=== PATIENT | female | born 1990 | race Caucasian/White ===

== ENCOUNTER 2021-08-11 00:10 | Inpatient (IN) | payer BC, MEDICAID, SELFPAY ==
[2021-08-10 23:21] VITALS: BMI 26.6
[2021-08-10 23:37] VITALS: BP 124/77; PULSE 103
[2021-08-10 23:38] VITALS: TEMP 36.3
[2021-08-10 23:47] VITALS: RESP 16
[2021-08-11] VITALS (145 sets, daily range): BP systolic 101–157; BP diastolic 50–88; PULSE 91–139; RESP 14–16; TEMP 36.6–37.3; O2SAT 80–100
[2021-08-11] MEDS: fentaNYL 50 mcg/mL INJ 2mL IVP (01:06)
[2021-08-11] MEDS: lactated ringers 1,000 ML 999 ML IV (01:10)
[2021-08-11] MEDS: ondansetron 2 mg/ML SDV 2 mL 4 MG IVP ×2 (01:15→07:55)
[2021-08-11 02:00] LABS: Basophils # 0.1 10^3/uL (0.0-0.1); Basophils % 0.3 %; Eosinophils % 0.1 %; Hematocrit 43.3 % (37.0-47.0); Hemoglobin 14.3 g/dL (11.5-15.3); Lymphocytes # 1.7 10^3/uL (0.8-4.8); Mean Corpuscular Hemoglobin 29.4 pg (28.0-34.0); Mean Corpuscular Volume 89.1 fl (81-99); Mean Platelet Volume 12.4 fL (7.4-10.4); Monocytes # 0.7 10^3/uL (0.2-0.9); Monocytes % 3.2 %; Neutrophils # 18.93 10^3/uL (1.8-7.7); Neutrophils % 87.6 %; Nucleated Red Blood Cells % 0 %; Platelet Count 205 10^3/cmm (130-400); Red Blood Count 4.86 10^6/uL (4.1-5.3); Red Cell Distribution Width 13.2 % (12.1-15.1); White Blood Count 21.6 10^3/uL (4.0-10.0)
[2021-08-11 02:17] LABS: Amphetamines Screen Urine Negative (Negative); Barbiturates Screen Urine Negative (Negative); Benzodiazepines Screen Urine Negative (Negative); Cocaine Screen Urine Negative (Negative); Opiate Screen Urine Negative (Negative); PCP Screen Urine Negative (Negative); THC Screen Urine Negative (Negative)
[2021-08-11] MEDS: dextrose 5%-lactated ringers 1,000 ML 125 ML IV (02:38)
--- NOTE | 2021-08-11 03:04 | ANES.PREANE2 ---
Pre-Anesthetic Assessment Pre-Anesthetic Assessment: Height/Weight: Height 1.7 m Weight 77.111 kg Temp Pulse Resp BP Pulse Ox 97.9 F 122 H 16 121/72 98 08/11/21 02:33 08/11/21 03:03 08/11/21 02:33 08/11/21 03:03 08/11/21 03:01 Preop Diagnosis: active labor Proposed Procedure: labor epidural Familial anesthetic complications: none Was Beta Joni taken within 24 hours: N/A Was Clonidine taken within 24 hours: N/A Last intake: 08/10/21 1500 Social: Social History: No alcohol and No tobacco Exam: Pre-Anes Outpt Exam: alert and oriented x 3 Airway: Submandibular: WNL Cervical ROM: WNL MP: 1 Dentition: Full History/ROS: No significant history except as noted Pulmonary: Pulmonary: Asthma CV/HEM: CV/HEM: None reported : : None reported Hepatic: Hepatic: None reported GI: GI: None reported Metabolic: Metabolic: None reported Musc/skel: Musc/skel: None reported Neuropsych: Neuropsych: None reported Anesthetic Plan: ASA status: 2 Anesthesia: Anesthesia Evaluation and Regional (specify below) Risk of > 500 ml blood loss (7ml/kg in children): No Meds/Allergies Current Medications: Current Medications Generic Name Dose Route Start Last Admin Trade Name Freq PRN Reason Stop Dose Admin Fentanyl 25 - 100 mcg 08/10/21 23:57 08/11/21 01:06 Fentanyl 50 Mcg/ Ml Inj 2ml IVP 25 mcg Q1H PRN Administration SEVERE PAIN Dextrose/Lactated Ringer's 1,000 mls @ 125 m ls/hr 08/10/21 23:57 08/11/21 02:38 Dextrose 5%-Lact ated Ringers IV 125 mls/hr .Q8H PRN Administration labor Lactated Ringer's 1,000 mls @ 999 m ls/hr 08/10/21 23:57 08/11/21 01:10 Lactated Ringers IV 999 mls/hr .Q1H1M PRN Administration See label comment s Ondansetron HCl 4 mg 08/10/21 23:57 08/11/21 01:15 Ondansetron 2 Mg /Ml Sdv 2 Ml IVP 4 mg Q4H PRN Administration NAUSEA AND VOMITI NG PFSH Anesthesia Female Reproductive History: : 2 Data Anesthesia CBC & Chem 7: 08/11/21 01:00 Other Labs: Laboratory Results - last 48 hr 08/11/21 08/11/21 01:00 01:30 WBC 21.6 H RBC 4.86 Hgb 14.3 Hct 43.3 MCV 89.1 MCH 29.4 MCHC 33.0 RDW 13.2 Plt Count 205 MPV 12.4 H Neut % (Auto) 87.6 Lymph % (Auto) 8.0 [place] % (Auto) 3.2 Eos % (Auto) 0.1 Baso % (Auto) 0.3 Neut # (Auto) 18.93 H Lymph # (Auto) 1.7 [place] # (Auto) 0.7 Eos # (Auto) 0.0 Baso # (Auto) 0.1 Nucleated RBC % (auto) 0 Nucleated RBCs # 0.0 Urine Opiates Screen Negative Ur Barbiturates Screen Negative Ur Phencyclidine Scrn Negative Ur Amphetamines Screen Negative U Benzodiazepines Scrn Negative Urine Cocaine Screen Negative U Marijuana (THC) Screen Negative Cardiac Studies: No Data to Display
--- NOTE | 2021-08-11 03:17 | ANES.PROC ---
Anesthesia Procedures Procedure/Date: 08/11/21 NATAN at 7 cm catheter threaded to 14 cm Epidural: Time Out Performed: Yes Consents Signed: Procedure Consent Consent: requested by attending/covering physician, risks and benefits reviewed and patient agrees to proceed Lumbar Level: L3-L4 Epidural position: sitting Epidural procedure: sterile prep of area, 1% lidocaine to numb the area, negative for paresthesia passed, neg for paresthesia, test dose given, placed PCEA, no systemic response, sterile dressing applied and 0.2% Ropiavacaine @ mls/hr
[2021-08-11] MEDS: sodium chloride 0.9% 1,000 ML 999 ML IV (04:27)
--- NOTE | 2021-08-11 09:19 | PM.MISC ---
Miscellaneous Note Purpose of Documentation: Bolused 100mcg of fent and 5mls of 0.25% bup in epidural.
[2021-08-11] MEDS: oxytocin 30 UNIT/500 ML BAG 600 UNIT IV (09:26)
--- NOTE | 2021-08-11 09:30 | PC.NURSE ---
Epidural pump turned off at this time. 4.5 mL of ropivicaine wasted.
--- NOTE | 2021-08-11 09:40 | P.PCNOB_ITS ---
Delivery Note: Date of delivery: August 11, 2021 Pre-delivery diagnoses: 31-year-old 2 para 1-0-0-1 at 40 weeks estimated gestational age presenting in active labor Post-delivery diagnoses: Status post spontaneous vaginal delivery Procedure: Spontaneous vaginal delivery Op report anesthesia: Epidural Delivering Physician: Alistair Cifuentes Estimated blood loss (mL): 150 Pre-Delivery Course: The patient arrived to the hospital the night prior to delivery with consistent contractions and cervical change. She was given an epidural. An amniotomy was performed. She was noted to have a rapid heart rate. She had no fever. She had no pain or foul-smelling amniotic fluid. She progressed to complete without difficulty. Delivery: DELIVERY: The patient progressed to complete without difficulty. She delivered a male with a weight of 7 pounds 9 ounces with Apgars of 9, 9. The baby was delivered from the JANET position and placed on the mother's abdomen. The cord was then clamped and cut. There was a nuchal cord x1. There was no meconium. The placenta and 3 vessel cord were delivered intact shortly thereafter. The perineum and vaginal vault were carefully examined. A superficial first-degree left vaginal wall laceration was noted that did not require repair. Both the mother and the baby were in stable condition. Post-Delivery Status: Good History History Other History: Her was relatively unremarkable. Her blood type was a positive. Her antibody screen was negative. Her HIV, chlamydia, gonorrhea, and RPR, and hepatitis B and C were all negative. Her glucose screen was negative. Her rubella is immune. Her Covid status is negative. Her GBS status is negative. She was positive for THC on her initial drug screen. A&P Assessment and plan (1) 40 weeks gestation of : Status: Acute (2) Spontaneous vaginal delivery: Status: Acute Coding Level of Care Code Acute General Pediatrician for Chg Fwd Diagnoses 40 weeks gestation of Z3A.40 Spontaneous vaginal delivery O80
--- NOTE | 2021-08-11 09:48 | PM.OPHPUD ---
Labor & Delivery H&P Update Date of Procedure: August 11, 2021 Date H&P Performed: 08/10/21 H&P update information: I have reviewed H&P completed within last 30 days, I have examined patient prior to procedure and Changes to prior documentation as noted here Changes to previous documentation: Cervix is dilated to 7 cm. Admission Diagnosis: Preop diagnosis: active labor Planned procedure: Spontaneous vaginal delivery Related Problem List Diagnoses (1) 40 weeks gestation of :
--- NOTE | 2021-08-11 10:25 | PC.NURSE ---
Epidural catheter removed at this time without difficulties. Catheter intact and site asymptomatic.
--- NOTE | 2021-08-11 12:15 | PC.NURSE ---
Pt requested to get out of bed at this time. This nurse at bedside assisting pt. Pt stood and her left leg became very weak. This nurse had pt sit back down in bed and got a wheelchair. Transferred pt to wheelchair and took her into the bathroom, transferred her to the commode. Pt was not able to void, olvin care was performed and pt transferred back to wheelchair and was taken to her room. Pt orientated to room and was instructed to not get out of bed and to call if she was ready to get out of bed and use the bathroom. Pt verbalized understanding.
[2021-08-11] MEDS: benzocaine-menthol 78 gm Canister 1 SPRAY TOPICAL (12:28)
[2021-08-11] MEDS: lanolin oint 7 gm 1 APPLIC TOPICAL (12:28)
[2021-08-11] MEDS: ibuprofen 800 mg tablet PO ×2 (15:31→21:15)
--- NOTE | 2021-08-11 15:41 | ANE.PACU2 ---
Inpatient post-anesthesia follow up: Airway intact: Yes Vital signs: Temperature 98.3 F Pulse Rate 91 Respiratory Rate 16 Blood Pressure 122/88 Pulse Oximetry 89 Oxygen Delivery Me thod Room Air Oxygen Flow Rate Fraction of Inspir ed Oxygen Hydration adequate: Yes Nausea and vomiting: No Pain level: 2 Mental status: Baseline
[2021-08-11 21:33] LABS: Hematocrit 37.4 % (37.0-47.0); Hemoglobin 12.2 g/dL (11.5-15.3); Mean Corpuscular HGB Conc 32.6 g/dL (30.0-36.0); Mean Corpuscular Hemoglobin 29.5 pg (28.0-34.0); Mean Corpuscular Volume 90.6 fl (81-99); Mean Platelet Volume 11.8 fL (7.4-10.4); Platelet Count 197 10^3/cmm (130-400); Red Blood Count 4.13 10^6/uL (4.1-5.3); Red Cell Distribution Width 13.7 % (12.1-15.1)
[2021-08-12 00:30] VITALS: BP 98/59; PULSE 93; RESP 16; O2SAT 96
[2021-08-12 04:30] VITALS: BP 100/59; PULSE 89; RESP 16; TEMP 37.1; O2SAT 97
[2021-08-12] MEDS: docusate sodium 100 mg Capsule PO (08:50)
[2021-08-12] MEDS: ibuprofen 800 mg tablet PO (08:51)
[2021-08-12] MEDS: prenatal vitamin Capsule 1 CAP PO (08:51)
--- NOTE | 2021-08-12 10:16 | P.DS_ITS ---
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 An epidural was placed. An amniotomy was performed. She progressed to complete and had an unremarkable delivery of a healthy-appearing 40-week male . Her course was also unremarkable. Her bleeding was within normal limits. She breast-fed well. Her pain was under control. Information Peripartum Data: Delivery Method: Vaginal Physical Exam Narrative: EXAM NARRATIVE: The patient is alert. She appears comfortable. Her heart has a regular rate and rhythm with no murmurs appreciated. Lungs are clear to auscultation bilaterally. Her fundus is firm and below the umbilicus. Urinary Catheter Management^: John Latex: Cath Placed During This Visit: yes, but has since been removed by the nurse Reason for Continuing Indwelling Catheter: Decision to DC Catheter Urinary Catheter Date of Insertion: 08/11/21 Urinary Catheter Time of Insertion: 03:44 Date Urinary Catheter Removed: 08/11/21 Time Urinary Catheter Discontinued: 07:26 History History Other History: Her was relatively unremarkable. Her blood type was a positive. Her antibody screen was negative. Her HIV, chlamydia, gonorrhea, and RPR, and hepatitis B and C were all negative. Her glucose screen was negative. Her rubella is immune. Her Covid status is negative. Her GBS status is negative. She was positive for THC on her initial drug screen. Discharge Data Data Completed and Pending: Labs from last 24 hours 08/11/21 21:20 WBC 26.0 H RBC 4.13 Hgb 12.2 Hct 37.4 MCV 90.6 MCH 29.5 MCHC 32.6 RDW 13.7 Plt Count 197 MPV 11.8 H Vitals: Last Vital Signs Temp 98.7 F 08/12/21 04:30 Pulse 89 08/12/21 04:30 Resp 16 08/12/21 04:30 BP 100/59 08/12/21 04:30 Pulse Ox 97 08/12/21 04:30 Discharge Plan Discharge Patient Disposition: Home Condition: Stable Prescriptions: New ibuprofen 800 mg Tablet 800 mg PO TID Qty: 45 RF: 0 -U 106.5-1 mg Capsule 1 cap PO DAILY Qty: 90 RF: 2 Discharge Orders: Discharge Order (Routine); Ordered 08/12/21 Ordered By: Alistair Cifuentes Referrals: Alistair Cifuentes MD [Physician] - 6 Weeks Discharge Diet: Usual diet Discharge Activity: Limit activity as instructed 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
[2021-08-12 12:00] VITALS: BP 119/80; PULSE 77; RESP 16; TEMP 36.8; O2SAT 100
[2021-08-12 15:02] VITALS: BP 119/80; PULSE 77; RESP 16; TEMP 36.8; O2SAT 100
[2021-08-12 15:03] VITALS: BP 119/80; PULSE 77; RESP 16; TEMP 36.8; O2SAT 100
== END 2021-08-12 14:40 | disposition home or self-care (01) | DRG 807 ==
PROVIDERS: Admitting Provider Family Medicine; Visit Provider Family Medicine
DX: O99.52 Diseases of the respiratory system complicating childbirth (principal); Z37.0 Single live birth; O69.81X0 Labor and delivery complicated by cord around neck, without compression, not applicable or unspecified; J45.909 Unspecified asthma, uncomplicated; Z3A.40 40 weeks gestation of pregnancy
CPT/HCPCS: 12345; 36415; 51702; 59025; 59409; 80306; 85025; 85027; 99211; J2405; J2795; J3010; J3490; J7030

== ENCOUNTER → 2021-11-29 13:41 | Outpatient (BNVA) | payer BC, MEDICAID, SELFPAY | PROVIDERS: Referring Provider Family Medicine; Visit Provider Internal Medicine | DX: E05.90 Thyrotoxicosis, unspecified without thyrotoxic crisis or storm (principal); Z87.891 Personal history of nicotine dependence | CPT/HCPCS: 99204 ==

== ENCOUNTER → 2022-01-10 13:44 | Outpatient (BNVA) | payer BC, MEDICAID, SELFPAY | PROVIDERS: Visit Provider Internal Medicine | DX: E05.90 Thyrotoxicosis, unspecified without thyrotoxic crisis or storm (principal); Z87.891 Personal history of nicotine dependence | CPT/HCPCS: 99213; 99214 ==

== ENCOUNTER → 2022-03-13 13:31 | Outpatient (BNVA) | payer BC, MEDICAID, SELFPAY | PROVIDERS: PCP Family Medicine; Visit Provider Internal Medicine | DX: O90.5 Postpartum thyroiditis (principal); R79.89 Other specified abnormal findings of blood chemistry; Z87.891 Personal history of nicotine dependence | CPT/HCPCS: 99214 ==

== ENCOUNTER → 2022-05-14 13:33 | Outpatient (BNVA) | payer BC, MEDICAID, SELFPAY | PROVIDERS: PCP Family Medicine; Visit Provider Internal Medicine | DX: Z87.891 Personal history of nicotine dependence (principal); E05.90 Thyrotoxicosis, unspecified without thyrotoxic crisis or storm; O90.5 Postpartum thyroiditis; R79.89 Other specified abnormal findings of blood chemistry | CPT/HCPCS: 99214 ==

== ENCOUNTER 2022-05-28 14:07 | Outpatient (CLI) | payer BC, MEDICAID, SELFPAY ==
--- NOTE | 2022-05-28 14:15 | US_ITS ---
WS: [id number] ULTRASOUND THYROID TECHNIQUE: Ultrasound of the thyroid. CLINICAL INFORMATION: hyperthyroidism Do with Doppler COMPARISON: None. FINDINGS: Thyroid: LEFT thyroid lobe and isthmus are not visualized likely congenitally absent. Somewhat coarse heterogeneous echotexture in the RIGHT thyroid lobe. Slightly prominent vascularity in the RIGHT thy roid lobe. Right thyroid lobe: 4.5 cm x 2.3 cm x 1.4 cm Left thyroid lobe: Not visualized Isthmus: Not visualized Cervical lymphadenopathy: None. US/US thyroid [id number] IMPRESSION: 1. 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 RIGHT thyroid demonstrates somewhat coarse heterogeneous echotexture. No hensley spicious thyroid nodules. 3. RIGHT thyroid vascularity somewhat prominent. Recommend correlation with th yroiditis and thyroid function studies. 4. No other significant findings.
== END 2022-05-28 14:08 | disposition home or self-care (01) ==
LOC: RAD 14:08
PROVIDERS: PCP Family Medicine; Visit Provider Internal Medicine
DX: E05.90 Thyrotoxicosis, unspecified without thyrotoxic crisis or storm (principal)
CPT/HCPCS: 76536

== ENCOUNTER 2023-05-21 15:56 | Outpatient (CLI) | payer BC, MEDICAID, SELFPAY ==
[2023-05-21 17:19] LABS: Free T4 Free Thyroxine 1.25 ng/dL (0.82-1.77); Thyroid Stimulating Hormone 2.08 uIU/mL (0.27-4.20)
[2023-05-22 09:05] LABS: T3 Total 113 ng/dL (76-181)
== END 2023-05-21 15:57 | disposition home or self-care (01) ==
LOC: LAB 16:01
PROVIDERS: PCP Family Medicine; Visit Provider Internal Medicine
DX: E05.90 Thyrotoxicosis, unspecified without thyrotoxic crisis or storm (principal); O90.5 Postpartum thyroiditis; R00.2 Palpitations; R25.1 Tremor, unspecified; R79.89 Other specified abnormal findings of blood chemistry
CPT/HCPCS: 36415; 84439; 84443; 84480

== ENCOUNTER → 2023-09-02 12:46 | Outpatient (BNVA) | payer BC, MEDICAID, SELFPAY | PROVIDERS: PCP Family Medicine; Visit Provider Nurse Practitioner | DX: R39.9 Unspecified symptoms and signs involving the genitourinary system (principal); N30.00 Acute cystitis without hematuria | CPT/HCPCS: 81000; 87077; 87086; 87184 ==

== ENCOUNTER 2024-05-21 10:14 | Outpatient (CLI) | payer SELFPAY ==
[2024-05-21 11:21] LABS: Free T4 Free Thyroxine 1.24 ng/dL (0.82-1.77); Thyroid Stimulating Hormone 2.93 uIU/mL (0.27-4.20)
[2024-05-22 11:55] LABS: T3 Total 90 ng/dL (76-181)
== END 2024-05-21 10:15 | disposition home or self-care (01) ==
LOC: LAB 10:16
PROVIDERS: PCP Family Medicine; Visit Provider Internal Medicine
DX: E05.90 Thyrotoxicosis, unspecified without thyrotoxic crisis or storm (principal); O90.5 Postpartum thyroiditis; R79.89 Other specified abnormal findings of blood chemistry; R00.2 Palpitations; R25.1 Tremor, unspecified
CPT/HCPCS: 36415; 84439; 84443; 84480

== ENCOUNTER → 2024-07-27 10:51 | Outpatient (BNVA) | payer BC, SELFPAY | PROVIDERS: PCP Family Medicine; Visit Provider Internal Medicine | DX: E07.9 Disorder of thyroid, unspecified (principal); E05.90 Thyrotoxicosis, unspecified without thyrotoxic crisis or storm | CPT/HCPCS: 36415; 84439; 84443; 84480 ==

== ENCOUNTER → 2025-06-04 10:12 | Outpatient (BNVA) | payer BC, SELFPAY | PROVIDERS: PCP Family Medicine; Visit Provider Internal Medicine | DX: E05.90 Thyrotoxicosis, unspecified without thyrotoxic crisis or storm (principal) | CPT/HCPCS: 84439; 84443; 84480 ==